=== PATIENT | male | born 2005 | race African-American/Black ===

== ENCOUNTER 2024-12-10 10:00 | Outpatient (CLI) | payer OTHER, SELFPAY ==
--- NOTE | ~2024-12-10 | CT_ITS ---
CT abdomen pelvis wo con Ordering provider: Vinh Ayala, ERIBERTO History: 19 years Male with . Hematuria,CHRONIC LOW BACK PAIN/PELVIC PAIN . Comparison: None. Technique: CT abdomen and pelvis without IV and without oral contrast. Automated exposure control and iterative reconstruction technique were employed. The dose-length product was 168.55 mGy-cm. Findings: VISUALIZED LOWER CHEST: Normal. UPPER ABDOMINAL ORGANS: Liver: Normal. Gallbladder: Contracted. Spleen: Normal. Stomach/duodenum: Normal. Pancreas: Normal. Adrenals: Normal. Kidneys: Normal. PELVIC ORGANS: The bladder is normal. BOWEL AND MESENTERY: Colon: No evidence of diverticulitis. The appendix is not demonstrated. Small Bowel: Normal. No obstruction. Peritoneum/mesentery: No free air or free fluid. No mesenteric lymphadenopathy. RETROPERITONEUM: Normal aorta. No retroperitoneal lymphadenopathy. MUSCULOSKELETAL: Superficial soft tissues: The superficial soft tissues are normal. Bones: Normal spine. IMPRESSION: 1. No evidence of appendicitis, diverticulitis or intestinal obstruction. No renal stones. Reviewed, dictated and finalized at location A. IMPRESSION: 1. No evidence of appendicitis, diverticulitis or intestinal obstruction. No r enal stones.
--- NOTE | ~2024-12-10 | XR_ITS ---
XR shoulder LT min 2V Ordering provider: Vinh Ayala, ERIBERTO History: . Chronic L Shoulder Pain X7YR . Comparison: None. FINDINGS: BONES: No acute fracture or dislocation. JOINT SPACES: The acromioclavicular joint is normal. The glenohumeral joint is normal. SOFT TISSUES: Normal. IMPRESSION: No acute osseous abnormality left shoulder. Reviewed, dictated and finalized at location A.
--- NOTE | 2024-12-10 10:07 | ECG_ITS ---
Test Date: 2024-12-10 10:19:32 Measurements Intervals [place] Rate: 74 P: 51 VT: 152 QRS: 66 QRSD: 77 T: -25 QT: 347 QTc: 385 Interpretive Statements SINUS RHYTHM WITH SINUS ARRHYTHMIA NONSPECIFIC ST & T-WAVE ABNORMALITY No previous ECG available for comparison Electronically Signed On 12-10-2024 15:18:43 CDT by Johanne Doll M.D.
== END 2024-12-10 10:01 | disposition home or self-care (01) ==
LOC: CHSIMG 10:03
PROVIDERS: PCP Physician Assistant; Visit Provider Physician Assistant
DX: R07.89 Other chest pain (principal); M25.512 Pain in left shoulder; R31.9 Hematuria, unspecified; I49.8 Other specified cardiac arrhythmias; R94.31 Abnormal electrocardiogram [ECG] [EKG]
CPT/HCPCS: 73030; 74176; 93005

== ENCOUNTER 2025-06-03 08:59 | Outpatient (CLI) | payer OTHER, SELFPAY ==
--- NOTE | 2025-06-05 13:51 | WPDHOLTEREM ---
Holter/Event Monitor Holter/Event Monitor Date of procedure: 06/03/25 Holter/Event Procedure: 48 Hr Holter Monitor Indications: Palpitations Conclusion: 1. 48 hour holter monitor on 06/03/25. 2. Underlying rhythm is sinus rhythm. HR range 49-150 bpm; average HR 76 bpm. HR at 49 bpm was at 2:56 am. HR at 150 bpm was at 11:58 pm. 3. There are 24 premature supraventricular complexes and 1 supraventricular couplet. No supraventricular tachycardia. 4. There is 1 premature ventricular complex. No ventricular tachycardia. 5. No significant pauses greater than 2 seconds. 6. No symptoms available for correlation.
== END 2025-06-03 09:00 | disposition home or self-care (01) ==
LOC: CHSCARD 09:01
PROVIDERS: PCP Physician Assistant; Visit Provider Registered Nurse
DX: R00.2 Palpitations (principal); R00.8 Other abnormalities of heart beat; I49.3 Ventricular premature depolarization
CPT/HCPCS: 93225; 93226

== ENCOUNTER 2025-06-23 09:35 | Outpatient (CLI) | payer OTHER, SELFPAY ==
--- NOTE | 2025-06-23 09:46 | EST_ITS ---
Patient Info Name: Iain Mcdowell Age: 19 years : 2005 Gender: Male Ht: 70 in Wt: 122 lbs BSA: 1.64 m2 HR: 72 bpm BP: 119 / 77 mmHg Heart Rhythm: Sinus Rhythm Technical Quality: Good Exam Date: 06/23/2025 9:46 AM Patient Status: O Admit Date: 06/23/2025 Exam Type: CA stress test treadmill A treadmill exercise stress test was performed. Staff Attending Provider: Doemnico Enrique Summary 1. 1. Negative Florian exercise stress test for ischemic ST changes by ECG criteria. 2. 2. Good functional capacity, achieving 13.6 METs of workload. 3. 3. Appropriate HR response to exercise. 4. 4. Appropriate HR recovery at 1 minute post exercise. 5. 5. No imaging with stress testing. Protocol: Florian Stress ECG Details Stage: REST Duration (min): 1 min : 7 sec Speed (mph): 0.0 Grade (%): 0 HR (bpm): 73 SBP (mmHg): 119 DBP (mmHg): 77 METS: --- Stage: REST Duration (min): 4 min : 21 sec Speed (mph): 0.0 Grade (%): 0 HR (bpm): 74 SBP (mmHg): 119 DBP (mmHg): 77 METS: --- Stage: STAGE 1 Duration (min): 1 min : 0 sec Speed (mph): 1.7 Grade (%): 10 HR (bpm): 94 SBP (mmHg): 119 DBP (mmHg): 77 METS: --- Stage: STAGE 1 Duration (min): 2 min : 0 sec Speed (mph): 1.7 Grade (%): 10 HR (bpm): 101 SBP (mmHg): 119 DBP (mmHg): 77 METS: --- Stage: STAGE 1 Duration (min): 3 min : 0 sec Speed (mph): 1.7 Grade (%): 10 HR (bpm): 97 SBP (mmHg): 130 DBP (mmHg): 74 METS: --- Stage: STAGE 2 Duration (min): 1 min : 0 sec Speed (mph): 2.5 Grade (%): 12 HR (bpm): 122 SBP (mmHg): 130 DBP (mmHg): 74 METS: --- Stage: STAGE 2 Duration (min): 2 min : 0 sec Speed (mph): 2.5 Grade (%): 12 HR (bpm): 122 SBP (mmHg): 130 DBP (mmHg): 74 METS: --- Stage: STAGE 2 Duration (min): 3 min : 0 sec Speed (mph): 2.5 Grade (%): 12 HR (bpm): 142 SBP (mmHg): 155 DBP (mmHg): 75 METS: --- Stage: STAGE 3 Duration (min): 1 min : 0 sec Speed (mph): 3.4 Grade (%): 14 HR (bpm): 161 SBP (mmHg): 155 DBP (mmHg): 75 METS: --- Stage: STAGE 3 Duration (min): 2 min : 0 sec Speed (mph): 3.4 Grade (%): 14 HR (bpm): 159 SBP (mmHg): 155 DBP (mmHg): 75 METS: --- Stage: STAGE 3 Duration (min): 3 min : 0 sec Speed (mph): 3.4 Grade (%): 14 HR (bpm): 171 SBP (mmHg): 158 DBP (mmHg): 80 METS: --- Stage: STAGE 4 Duration (min): 1 min : 0 sec Speed (mph): 4.2 Grade (%): 16 HR (bpm): 180 SBP (mmHg): 158 DBP (mmHg): 80 METS: --- Stage: STAGE 4 Duration (min): 2 min : 0 sec Speed (mph): 4.2 Grade (%): 16 HR (bpm): 176 SBP (mmHg): 158 DBP (mmHg): 80 METS: --- Stage: STAGE 4 Duration (min): 3 min : 0 sec Speed (mph): 4.2 Grade (%): 16 HR (bpm): 178 SBP (mmHg): 159 DBP (mmHg): 81 METS: --- Stage: STAGE 5 Duration (min): 0 min : 59 sec Speed (mph): 5.0 Grade (%): 18 HR (bpm): 182 SBP (mmHg): 159 DBP (mmHg): 81 METS: --- Stage: RECOVERY Duration (min): 1 min : 0 sec Speed (mph): 0.0 Grade (%): 0 HR (bpm): 145 SBP (mmHg): 159 DBP (mmHg): 81 METS: --- Stage: RECOVERY Duration (min): 2 min : 0 sec Speed (mph): 0.0 Grade (%): 0 HR (bpm): 129 SBP (mmHg): 140 DBP (mmHg): 65 METS: --- Stage: RECOVERY Duration (min): 3 min : 0 sec Speed (mph): 0.0 Grade (%): 0 HR (bpm): 116 SBP (mmHg): 140 DBP (mmHg): 65 METS: --- Stage: RECOVERY Duration (min): 4 min : 0 sec Speed (mph): 0.0 Grade (%): 0 HR (bpm): 110 SBP (mmHg): 128 DBP (mmHg): 65 METS: --- Stage: RECOVERY Duration (min): 5 min : 0 sec Speed (mph): 0.0 Grade (%): 0 HR (bpm): 101 SBP (mmHg): 128 DBP (mmHg): 65 METS: --- Stage: RECOVERY Duration (min): 6 min : 0 sec Speed (mph): 0.0 Grade (%): 0 HR (bpm): 102 SBP (mmHg): 125 DBP (mmHg): 65 METS: --- Stage: RECOVERY Duration (min): 7 min : 0 sec Speed (mph): 0.0 Grade (%): 0 HR (bpm): 101 SBP (mmHg): 125 DBP (mmHg): 65 METS: --- Stage: RECOVERY Duration (min): 7 min : 16 sec Speed (mph): 0.0 Grade (%): 0 HR (bpm): 99 SBP (mmHg): 125 DBP (mmHg): 65 METS: --- Rest HR: 74 bpm Peak HR: 184 bpm Rest Sys BP: 119 mmHg Peak Sys BP: 159 mmHg Max Pred HR: 199 bpm % Max Pred HR: 92 % Target HR: 169 bpm Max RPP: 29,256 bpm*mmHg López Score: -17 Target HR Summary: Patient's target heart rate was achieved BP Response: Normal blood pressure response Termination Reason: Fatigue Cardiac Symptoms: None Max ST Seg Deviation: 6.00 mm Total Time: 13 min : 0 sec Rest Wood BP: 77 mmHg Peak Wood BP: 81 mmHg Angina Score: None Total METS: 13.6 Resting ECG Normal sinus rhythm. Stress ECG No abnormal ST/T wave changes with exercise. Arrhythmias No arrhythmias were observed during the examination. Report Signatures
== END 2025-06-23 09:36 | disposition home or self-care (01) ==
PROVIDERS: PCP Physician Assistant; Visit Provider Registered Nurse
DX: R07.9 Chest pain, unspecified (principal); R00.2 Palpitations
CPT/HCPCS: 93017